=== PATIENT | male | born 1955 | race African-American/Black ===

== ENCOUNTER 2021-12-11 14:57 | Inpatient (IN) | payer MEDICARE, OTHER ==
[2021-12-11 19:23] VITALS: BMI 32.1
[2021-12-11] MEDS ORDERED: LOPERAMIDE HCL 2 MG CAPSULE PO PRN (20:17)
[2021-12-11] MEDS ORDERED: methaDONE HCL 10 MG TABLET (FOR DETOX USE ONLY) PO ONE (20:17)
[2021-12-11] MEDS ORDERED: ONDANSETRON *ODT* 4 MG TABLET SL PRN (20:17)
[2021-12-11] MEDS ORDERED: MAGNESIUM CITRATE 300 ML BOTTLE PO PRN (20:17)
[2021-12-11] MEDS ORDERED: IBUPROFEN 600 MG TABLET (FP) PO PRN (20:17)
[2021-12-11] MEDS ORDERED: ACETAMINOPHEN 325 MG TABLET (FP) PO PRN ×2 (20:17)
[2021-12-11] MEDS ORDERED: IBUPROFEN 400 MG TABLET (FP) PO PRN (20:17)
[2021-12-11] MEDS ORDERED: NICOTINE 10 MG CARTRIDGE (INHALER) IH PRN (20:17)
[2021-12-11] MEDS ORDERED: BISMUTH SUBSALICYLATE 524 MG/30 ML PO PRN (20:17)
[2021-12-11] MEDS ORDERED: DICYCLOMINE HCL 10 MG CAPSULE PO PRN (20:17)
[2021-12-11] MEDS ORDERED: MAG HYDROX/AL HYDROX/SIMETH 30 ML UNIT-DOSE CUP PO PRN (20:17)
[2021-12-11] MEDS ORDERED: BENZOCAINE/MENTHOL (CHLORASEPTIC ) LOZENGE MM PRN (20:17)
[2021-12-11] MEDS ORDERED: cloNIDine HCL 0.1 MG TABLET PO PRN (20:17)
[2021-12-11] MEDS: THIAMINE HCL 100 MG TABLET (FP) PO SCH (23:35)
[2021-12-11] MEDS: diazePAM 5 MG TABLET PO SCH (23:36)
[2021-12-11] MEDS: MELATONIN 5 MG TABLETS PO SCH (23:37)
[2021-12-12] MEDS: diazePAM 5 MG TABLET PO SCH ×4 (05:55→22:10)
[2021-12-12] MEDS ORDERED: methaDONE HCL 10 MG TABLET (FOR DETOX USE ONLY) ONE (09:18)
[2021-12-12] MEDS: METHOCARBAMOL 500 MG TABLET PO PRN (10:26)
[2021-12-12] MEDS: PRENATAL VITAMINS W/ FOLIC ACID TABLET (FP) PO SCH (10:26)
[2021-12-12] MEDS: NICOTINE 14 MG/24 HOURS TOPICAL PATCH TD SCH (10:29)
[2021-12-12] MEDS ORDERED: PATIENT'S OWN MEDICATION (NON-FORMULARY) (Valsartan/Hydrochlorothiazide [Valsartan-Hctz 32 PO SCH (10:30)
[2021-12-12] MEDS: MAGNESIUM HYDROX 2400MG/30ML ORAL SUSPENSION 30 ML CUP PO PRN (10:36)
[2021-12-12] MEDS: HYDROCHLOROTHIAZIDE 25 MG TABLET (FP) PO SCH (12:33)
[2021-12-12] MEDS: VALSARTAN 160 MG TABLET PO SCH (12:34)
[2021-12-12 12:40] LABS: HEMATOCRIT 40.1 % (35.4-49); HEMOGLOBIN 13.2 GM/dL (11.7-16.9); MCH 28.4 pg (25.7-33.7); MCHC 32.9 g/dl (32.0-35.9); MEAN CELL VOLUME 86.6 fl (80-96); MEAN PLT VOLUME 7.6 fl (7.5-11.1); PLATELET COUNT 328 10^3/uL (134-434); RBC 4.63 M/mm3 (4.00-5.60); RDW 13.7 % (11.9-15.9); WHITE BLOOD COUNT 13.6 K/mm3 (4.0-10.0)
[2021-12-12 12:59] LABS: ALBUMIN 3.4 g/dl (3.4-5.0); BILIRUBIN,TOTAL 0.5 mg/dL (0.2-1); BLOOD UREA NITROGEN 15.6 mg/dL (7-18); CALCIUM 9.2 mg/dL (8.5-10.1); CREATININE 0.9 mg/dL (0.55-1.3); TOT PROT 8.1 g/dl (6.4-8.2)
[2021-12-12] MEDS: DOCUSATE SODIUM 100 MG CAPSULE (FP) PO SCH ×2 (15:13→22:08)
[2021-12-12] MEDS ORDERED: PATIENT'S OWN MEDICATION (NON-FORMULARY) (Simvastatin 40 MG Tablet) PO SCH (22:00)
[2021-12-12] MEDS: THIAMINE HCL 100 MG TABLET (FP) PO SCH (22:08)
[2021-12-12] MEDS: ATORVASTATIN CA 20 MG TABLET (FP) PO SCH (22:10)
[2021-12-12] MEDS: GABAPENTIN 400 MG CAPSULE PO SCH (22:10)
[2021-12-12] MEDS: MELATONIN 5 MG TABLETS PO SCH (22:11)
[2021-12-13] MEDS: DOCUSATE SODIUM 100 MG CAPSULE (FP) PO SCH ×3 (05:31→23:18)
[2021-12-13] MEDS: diazePAM 5 MG TABLET PO SCH ×3 (05:31→23:18)
[2021-12-13] MEDS ORDERED: methaDONE HCL 10 MG TABLET (FOR DETOX USE ONLY) PO ONE (10:00)
[2021-12-13] MEDS: HYDROCHLOROTHIAZIDE 25 MG TABLET (FP) PO SCH (10:31)
[2021-12-13] MEDS: ASPIRIN 81 MG CHEWABLE TABLETS PO SCH (10:31)
[2021-12-13] MEDS: PRENATAL VITAMINS W/ FOLIC ACID TABLET (FP) PO SCH (10:31)
[2021-12-13] MEDS: GABAPENTIN 400 MG CAPSULE PO SCH ×2 (10:32→23:18)
[2021-12-13] MEDS: METHOCARBAMOL 500 MG TABLET PO PRN ×2 (10:32→18:43)
[2021-12-13] MEDS: diazePAM 5 MG TABLET PO PRN ×2 (10:32→18:43)
[2021-12-13] MEDS: NICOTINE 14 MG/24 HOURS TOPICAL PATCH TD SCH (10:33)
[2021-12-13] MEDS: VALSARTAN 160 MG TABLET PO SCH (10:34)
[2021-12-13] MEDS: MAGNESIUM HYDROX 2400MG/30ML ORAL SUSPENSION 30 ML CUP PO PRN (11:05)
[2021-12-13 11:13] LABS: HEMATOCRIT 41.7 % (35.4-49); HEMOGLOBIN 13.7 GM/dL (11.7-16.9); MCH 28.6 pg (25.7-33.7); MCHC 32.8 g/dl (32.0-35.9); PLATELET COUNT 394 10^3/uL (134-434); RBC 4.79 M/mm3 (4.00-5.60); RDW 13.9 % (11.9-15.9); WHITE BLOOD COUNT 12.6 K/mm3 (4.0-10.0)
[2021-12-13] MEDS: MELATONIN 5 MG TABLETS PO SCH (23:18)
[2021-12-13] MEDS: THIAMINE HCL 100 MG TABLET (FP) PO SCH (23:18)
[2021-12-13] MEDS: ATORVASTATIN CA 20 MG TABLET (FP) PO SCH (23:18)
[2021-12-14] MEDS: DOCUSATE SODIUM 100 MG CAPSULE (FP) PO SCH ×3 (05:30→21:19)
[2021-12-14] MEDS: diazePAM 5 MG TABLET PO SCH ×2 (05:30→17:46)
[2021-12-14] MEDS ORDERED: methaDONE HCL 10 MG TABLET (FOR DETOX USE ONLY) ONE (09:09)
[2021-12-14] MEDS: PRENATAL VITAMINS W/ FOLIC ACID TABLET (FP) PO SCH (10:20)
[2021-12-14] MEDS: GABAPENTIN 400 MG CAPSULE PO SCH ×2 (10:21→21:19)
[2021-12-14] MEDS: ASPIRIN 81 MG CHEWABLE TABLETS PO SCH (10:21)
[2021-12-14] MEDS: HYDROCHLOROTHIAZIDE 25 MG TABLET (FP) PO SCH (10:21)
[2021-12-14] MEDS: diazePAM 5 MG TABLET PO PRN (10:22)
[2021-12-14] MEDS: VALSARTAN 160 MG TABLET PO SCH (10:23)
[2021-12-14] MEDS: NICOTINE 14 MG/24 HOURS TOPICAL PATCH TD SCH (10:24)
[2021-12-14] MEDS: MAGNESIUM HYDROX 2400MG/30ML ORAL SUSPENSION 30 ML CUP PO PRN (13:31)
[2021-12-14] MEDS: THIAMINE HCL 100 MG TABLET (FP) PO SCH (21:19)
[2021-12-14] MEDS: MELATONIN 5 MG TABLETS PO SCH (21:19)
[2021-12-14] MEDS: ATORVASTATIN CA 20 MG TABLET (FP) PO SCH (21:19)
[2021-12-15] MEDS: DOCUSATE SODIUM 100 MG CAPSULE (FP) PO SCH ×3 (05:16→22:23)
[2021-12-15] MEDS ORDERED: diazePAM 5 MG TABLET PO ONE (06:00)
[2021-12-15] MEDS ORDERED: methaDONE HCL 10 MG TABLET (FOR DETOX USE ONLY) PO ONE (10:00)
[2021-12-15] MEDS: ASPIRIN 81 MG CHEWABLE TABLETS PO SCH (10:22)
[2021-12-15] MEDS: PRENATAL VITAMINS W/ FOLIC ACID TABLET (FP) PO SCH (10:22)
[2021-12-15] MEDS: GABAPENTIN 400 MG CAPSULE PO SCH ×2 (10:22→22:24)
[2021-12-15] MEDS: HYDROCHLOROTHIAZIDE 25 MG TABLET (FP) PO SCH (10:22)
[2021-12-15] MEDS: VALSARTAN 160 MG TABLET PO SCH (10:23)
[2021-12-15] MEDS: NICOTINE 14 MG/24 HOURS TOPICAL PATCH TD SCH (10:24)
[2021-12-15] MEDS: MAGNESIUM HYDROX 2400MG/30ML ORAL SUSPENSION 30 ML CUP PO PRN (10:32)
[2021-12-15 21:18] VITALS: RESP 17
[2021-12-15] MEDS: THIAMINE HCL 100 MG TABLET (FP) PO SCH (22:23)
[2021-12-15] MEDS: MELATONIN 5 MG TABLETS PO SCH (22:23)
[2021-12-15] MEDS: ATORVASTATIN CA 20 MG TABLET (FP) PO SCH (22:23)
[2021-12-15] MEDS: METHOCARBAMOL 500 MG TABLET PO PRN (22:24)
[2021-12-16] MEDS: DOCUSATE SODIUM 100 MG CAPSULE (FP) PO SCH (05:51)
[2021-12-16 09:46] VITALS: BP 151/81; PULSE 81; TEMP 96.6
== END 2021-12-16 09:41 | disposition home or self-care (01) | DRG 897 ==
LOC: YASAS 14:57 → Y6N 22:39
PROVIDERS: ADMIT Allergy & Immunology; ATTEND Surgery
PROC: HZ2ZZZZ Detoxification Services for Substance Abuse Treatment (ICD-10-PCS; principal; 2021-12-11)
DX: F11.23 Opioid dependence with withdrawal (principal); F13.230 Sedative, hypnotic or anxiolytic dependence with withdrawal, uncomplicated; F17.210 Nicotine dependence, cigarettes, uncomplicated; I10 Essential (primary) hypertension; E78.5 Hyperlipidemia, unspecified
CPT/HCPCS: 36415; 80053; 82947; 82962; 83036; 85027; 86780; 93005; 93010; C9803-CS; U0003; U0005